=== PATIENT | male | born 1975 | race Caucasian/White ===

== ENCOUNTER 2021-12-28 04:28 | Emergency (ER) | payer OTHER ==
[~2021-12-28] VITALS: Ht 177.8 cm; Wt 133.8 kg
[2021-12-28] MEDS ORDERED: NS IV 1000 ML 1,000 ML IV STA (04:47)
[2021-12-28] MEDS ORDERED: ONDANSETRON 4 MG/2 ML (SDV) Z0FRAN IVP STA (04:47)
[2021-12-28] MEDS ORDERED: KETOROLAC 30 MG/ML VIAL IVP STA (04:47)
--- NOTE | 2021-12-28 04:53 | ED Abdominal Pain ---
General Chief Complaint: Abdominal/GI Problems Stated Complaint: KIDNEY STONES Source of Information: Patient History of Present Illness Date Seen by Provider: Dec 28, 2021 Time Seen by Provider: 04:36 Initial Comments 46-year-old male presenting with 3 hours of left flank pain. He states he has also had nausea and vomiting with this. He has had prior kidney stones and states this feels similar. It has been several years since he had a kidney stone. He also had eaten a lot of food [employer] earlier, so he was uncomfortable in his abdomen due to that as well. He denies any other medical problems and does not take any routine medications. He denies allergies to medications. He states he does follow-up with a urologist routinely in the longer since a had not had a kidney stone for several years. He did not try to take any medicine at home for the pain Timing/Duration: 1-3 Hours Severity/Quality: Severe, Aching, Stabbing Location: Flank (Left flank) Radiation: Flank (Left flank) Activities at Onset: Sleeping Associated Symptoms: Back Pain (Left flank pain); No Chest Pain; Diaphoresis; No Fever/Chills, No Fatigue, No Headache, No Heartburn; Nausea/Vomiting; No Rash, No Shortness of Air, No Swelling/Mass in Abdomen, No Syncope, No Weakness Allergies and Home Medications Allergies Coded Allergies: No Known Drug Allergies (Unverified , 12/28/21) Patient Home Medication List Home Medication List Reviewed: Yes Ondansetron (Ondansetron Odt) 4 Mg Tab.rapdis, 4 MG PO Q6H PRN for NAUS EA/VOMITING Prescribed by: MATTHEW CURRYRT on 12/28/21611 Oxycodone HCl/Acetaminophen (Oxycodone-Acetaminophen 5-325) 5 Mg-325 Mg Tablet, 1 EACH PO Q4H PRN for PAIN-SEVERE (8-10) Prescribed by: MATTHEW CURRYRT on 12/28/21612 Tamsulosin HCl (Flomax) 0.4 Mg Cap, 0.4 MG PO DAILY Prescribed by: MATTHEW SCHULER on 12/28/21611 Review of Systems Review of Systems Constitutional: see HPI; No chills, No fever EENTM: No Symptoms Reported Respiratory: No Symptoms Reported Cardiovascular: No Symptoms Reported Gastrointestinal: See HPI Genitourinary: Denies Burning; Flank Pain (Left) Musculoskeletal: see HPI Skin: no symptoms reported Psychiatric/Neurological: No Symptoms Reported Endocrine: No Symptoms Reported Past Oaagtqk-Mzvleo-Sageci Hx Past Medical History Surgery/Hospitalization HX: Kidney stones Physical Exam Vital Signs Vital Signs - First Documented 12/28/21 04:36 Temp 36.1 Pulse 73 Resp 20 B/P (MAP) 145/87 (106) Pulse Ox 98 O2 Delivery Room Air Capillary Refill : Height/Weight/BMI Height: '" Weight: lbs. oz. kg; BMI Method: General Appearance: mild distress, obese HEENT: PERRL/EOMI, pharynx normal Neck: non-tender, full range of motion, supple, normal inspection Respiratory: chest non-tender, lungs clear, normal breath sounds, no respiratory distress, no accessory muscle use Cardiovascular: normal peripheral pulses, regular rate, rhythm Gastrointestinal: normal bowel sounds, soft, no pulsatile mass; No distended, No guarding, No rebound; tenderness (Mild diffuse tenderness to palpation) Rectal: deferred Extremities: normal range of motion, non-tender, normal capillary refill Neurologic/Psychiatric: alert, oriented x 3 Skin: normal color, warm/dry Images 1 - Left flank pain Progress/Results/Core Measures Results/Orders Lab Results Laboratory Tests Test 12/28/21 04:36 12/28/21 04:40 Range/Units Urine Color DARK YELLOW Urine Clarity SL CLOUDY Urine pH 5.5 5-9 Urine Specific [place] >=1.030 1.016-1.022 Urine Protein NEGATIVE NEGATIVE Urine Glucose (UA) NEGATIVE NEGATIVE Urine Ketones NEGATIVE NEGATIVE Urine Nitrite NEGATIVE NEGATIVE Urine Bilirubin NEGATIVE NEGATIVE Urine Urobilinogen 0.2 < = 1.0 MG/DL Urine Leukocyte Esterase NEGATIVE NEGATIVE Urine RBC (Auto) 3+ H NEGATIVE Urine RBC 25-50 H /HPF Urine WBC RARE /HPF Urine Squamous Epithelial Cells 2-5 /HPF Urine Crystals NONE /LPF Urine Bacteria NEGATIVE /HPF Urine Casts NONE /LPF Urine Mucus MODERATE H /LPF Urine Culture Indicated NO Urine Opiates Screen NEGATIVE NEGATIVE Urine Oxycodone Screen NEGATIVE NEGATIVE Urine Methadone Screen NEGATIVE NEGATIVE Urine Propoxyphene Screen NEGATIVE NEGATIVE Urine Barbiturates Screen NEGATIVE NEGATIVE Ur Tricyclic Antidepressants Screen NEGATIVE NEGATIVE Urine Phencyclidine Screen NEGATIVE NEGATIVE Urine Amphetamines Screen NEGATIVE NEGATIVE Urine Methamphetamines Screen NEGATIVE NEGATIVE Urine Benzodiazepines Screen NEGATIVE NEGATIVE Urine Cocaine Screen NEGATIVE NEGATIVE Urine Cannabinoids Screen NEGATIVE NEGATIVE White Blood Count 7.5 4.3-11.0 10^3/uL Red Blood Count 4.55 4.30-5.52 10^6/uL Hemoglobin 14.0 13.3-17.7 g/dL Hematocrit 41 40-54 % Mean Corpuscular Volume 90 80-99 fL Mean Corpuscular Hemoglobin 31 25-34 pg Mean Corpuscular Hemoglobin Concent 34 32-36 g/dL Red Cell Distribution Width 12.3 10.0-14.5 % Platelet Count 197 130-400 10^3/uL Mean Platelet Volume 9.6 9.0-12.2 fL Immature Granulocyte % (Auto) 0 % Neutrophils (%) (Auto) 45 42-75 % Lymphocytes (%) (Auto) 37 12-44 % Monocytes (%) (Auto) 9 0-12 % Eosinophils (%) (Auto) 8 0-10 % Basophils (%) (Auto) 1 0-10 % Neutrophils # (Auto) 3.4 1.8-7.8 10^3/uL Lymphocytes # (Auto) 2.8 1.0-4.0 10^3/uL Monocytes # (Auto) 0.7 0.0-1.0 10^3/uL Eosinophils # (Auto) 0.6 H 0.0-0.3 10^3/uL Basophils # (Auto) 0.0 0.0-0.1 10^3/uL Immature Granulocyte # (Auto) 0.0 0.0-0.1 10^3/uL Sodium Level 140 135-145 MMOL/L Potassium Level 3.8 3.6-5.0 MMOL/L Chloride Level 106 98-107 MMOL/L Carbon Dioxide Level 26 21-32 MMOL/L Anion Gap 8 5-14 MMOL/L Blood Urea Nitrogen 14 7-18 MG/DL Creatinine 1.01 0.60-1.30 MG/DL Estimat Glomerular Filtration Rate 94 BUN/Creatinine Ratio 14 Glucose Level 131 H 70-105 MG/DL Calcium Level 9.0 8.5-10.1 MG/DL Corrected Calcium 8.7 8.5-10.1 MG/DL Total Bilirubin 0.2 0.1-1.0 MG/DL Aspartate Amino Transf (AST/SGOT) 30 5-34 U/L Alanine Aminotransferase (ALT/SGPT) 36 0-55 U/L Alkaline Phosphatase 61 40-136 U/L Total Protein 7.0 6.4-8.2 GM/DL Albumin 4.4 3.2-4.5 GM/DL Lipase 26 8-78 U/L My Orders Orders - MATTHEW SCHULER MD Comprehensive Metabolic Panel (12/28/21 04:46) Lipase (12/28/21 04:46) Ua Culture If Indicated (12/28/21 04:46) Ed Iv/Invasive Line Start (12/28/21 04:46) Cbc With Automated Diff (12/28/21 04:46) Ct Abdomen/Pelvis Wo (12/28/21 04:46) Drug Screen Stat (Urine) (12/28/21 04:46) Ns Iv 1000 Ml (Sodium Chloride 0.9%) (12/28/21 04:47) Ondansetron Injection (Zofran Injectio (12/28/21 04:47) Ketorolac Injection (Toradol Injection) (12/28/21 04:47) Tamsulosin Capsule (Flomax Capsule) (12/28/21 06:06) Oxycodone/Apap 5/325mg Tablet (Percocet (12/28/21 06:06) Strain Urine (12/28/21 06:06) Vital Signs/I&O 12/28/21 12/28/21 04:36 06:15 Temp 36.1 Pulse 73 76 Resp 20 17 B/P (MAP) 145/87 (106) 141/80 Pulse Ox 98 99 O2 Delivery Room Air Room Air Progress Progress Note #1: Progress Note Check labs and urinalysis as well as CT scan of the abdomen and pelvis without contrast. For pain give 30 mg IV Toradol, for nausea Zofran 4 mg IV, normal saline 1 L IV fluid for hydration. Differential diagnosis includes kidney stone, renal colic, pyelonephritis, UTI, diverticulitis, colitis Progress Note #2: Progress Note Labs appear stable without acute significant abnormality on CBC or chemistry. His urinalysis was concentrated with specific gravity greater than 1.030. There was red blood cells in his urine. CT scan of abdomen and pelvis without contrast showed a 4 mm kidney stone in the proximal ureter on the left side. There were at least 3 other stones bilaterally within the kidneys themselves. He also appeared to have some fatty infiltration of the liver. Patient's symptoms improved with treatment here in the ED. Counseled on management of his symptoms and follow-up and return precautions. Will add Flomax to try and help relax the ureter so the stone may pass easier. Prescribed opiate for severe pain and counseled that he could use [id number] NSAIDs to help with just inflammation and pain. A few Zofran and dissolving nausea tablets if needed for helping to keep his stomach settled. Advised to strain his urine to see when the stone passes and to check with urology if the stone is not passed within 5 to 7 days or if his pain gets worse. Advised to return or seek medical care immediately if he has fever of 101 Fahrenheit, uncontrolled pain, worsening pain despite the medicine. Diagnostic Imaging Diagonstic Imaging: CT Plain Films/CT/US/NM/MRI: abdomen, pelvis Comments NAME: AL LUTZ [facility] REC#: [id number] PT STATUS: REG ER : 1975 PHYSICIAN: MATTHEW SCHULER MD ADMIT DATE: 12/28/21/ER FS Draft Date of Exam:12/28/21 CT ABDOMEN/PELVIS WO INDICATION: Left flank pain, history of kidney stones. TECHNIQUE: Multiple contiguous axial images were obtained through the abdomen and pelvis without the use of intravenous contrast. Auto Exposure Controls were utilized during the CT exam to meet ALARA standards for radiation dose reduction. There is no prior study for comparison. FINDINGS: The visualized portions of the lung bases are clear. There were no pleural fluid collections. There is no free intraperitoneal air. The liver shows diffuse low-density change compatible with fatty infiltration. Gallbladder appears normal. The spleen, pancreas, and adrenals appear normal. The right kidney shows a couple of small nonocclusive stones in the calyceal region. There is no right hydronephrosis or hydroureter. The left kidney shows a couple tiny intrarenal calculi which appear to be in the caliceal region. There is mild left hydronephrosis, secondary to a stone in the proximal ureter just beyond the UPJ, measuring about 4 mm in diameter. There are no additional stones beyond this point. There is no retroperitoneal mass or adenopathy. There is no ascites or abnormal fluid collection. Visualized bowel loops including the appendix appear normal. There is no pelvic mass or lymphadenopathy. IMPRESSION: There are bilateral intrarenal calculi. There is mild left hydronephrosis secondary to a 4 mm stone in the left proximal ureter just beyond the UPJ. There is diffuse fatty infiltration of the liver. Dictated on workstation # [id number] Dict: 12/28/21 0549 Trans: 12/28/21 0556 [id number] Interpreted by: AGUSTIN SARABIA MD Electronically signed by: Reviewed: Reviewed by Me Departure Impression Primary Impression: Renal colic on left side Additional Impressions: Acute left flank pain Ureteral calculus, left Kidney stones Disposition: HOME, SELF-CARE Condition: Improved Departure-Patient Inst. Decision time for Depature: 06:07 Referrals: CONSTANTINO COLLADO MD Patient Instructions: Flank Pain ED, Opioids for Short-Term Treatment of Pain ED, Kidney Stone, Adult ED, How to Strain Your Urine, Kidney Stone Diet Add. Discharge Instructions: Strain your urine to see when the kidney stone passes. You have a 4 mm stone that is in the ureter close to the left kidney. There are at least 3 other small stones within your kidneys, two on the right side and one on the left Make sure you are drinking plenty of water and staying well-hydrated. Avoid carbonated and caffeinated drinks as these can help contribute to more sounds forming. Use the Flomax to help your ureter relax and make it easier for the stone to pass. Take the narcotic pain pill to help with severe pain. [id number] you can also try taking ibuprofen or naproxen to try and help with pain and inflammation. If needed use the dissolving nausea tablet to help keep your stomach settled Especially if your pain is not improving within the next 5 to 7 days or you are not seen the stone pass you would need to follow-up with urology. They may need to perform a procedure to help the stone pass or break it up. All discharge instructions reviewed with patient and/or family. Voiced understanding. Scripts Oxycodone HCl/Acetaminophen (Oxycodone-Acetaminophen 5-325) 5 Mg-325 Mg Tablet 1 EACH PO Q4H PRN for PAIN-SEVERE (8-10) MDD 6 for 5 Days, #30 TAB 0 Refills Prov: MATTHEW SCHULER MD 12/28/21 Tamsulosin HCl (Flomax) 0.4 Mg Cap 0.4 MG PO DAILY for renal colic for 7 Days, #7 CAP 0 Refills Prov: MATTHEW SCHULER MD 12/28/21 Ondansetron (Ondansetron Odt) 4 Mg Tab.rapdis 4 MG PO Q6H PRN for NAUSEA/VOMITING for 4 Days, #16 TAB 0 Refills Prov: MATTHEW SCHULER MD 12/28/21 MATTHEW SCHULER MD Dec 28, 2021 04:53
[2021-12-28 04:59] LABS: BASOPHILS % (AUTO) 1 % (0-10); EOSINOPHILS # (AUTO) 0.6 10^3/uL (0.0-0.3); EOSINOPHILS % (AUTO) 8 % (0-10); HEMATOCRIT 41 % (40-54); LYMPHOCYTES # (AUTO) 2.8 10^3/uL (1.0-4.0); LYMPHOCYTES % (AUTO) 37 % (12-44); MEAN CORPUSCULAR HEMOGLOBIN 31 pg (25-34); MEAN CORPUSCULAR HGB CONC 34 g/dL (32-36); MEAN CORPUSCULAR VOLUME 90 fL (80-99); MEAN PLATELET VOLUME 9.6 fL (9.0-12.2); MONOCYTES # (AUTO) 0.7 10^3/uL (0.0-1.0); MONOCYTES % (AUTO) 9 % (0-12); NEUTROPHILS # (AUTO) 3.4 10^3/uL (1.8-7.8); NEUTROPHILS % (AUTO) 45 % (42-75); PLATELET COUNT 197 10^3/uL (130-400); WHITE BLOOD COUNT 7.5 10^3/uL (4.3-11.0)
[2021-12-28 05:01] LABS: BILIRUBIN,URINE NEGATIVE (NEGATIVE); CLARITY,URINE SL CLOUDY; GLUCOSE, URINE (UA) NEGATIVE (NEGATIVE); KETONES,URINE NEGATIVE (NEGATIVE); LEUKOCYTE ESTERASE ,URINE NEGATIVE (NEGATIVE); NITRITE,URINE NEGATIVE (NEGATIVE); PH,URINE 5.5 (5-9); PROTEIN,URINE NEGATIVE (NEGATIVE)
[2021-12-28 05:12] LABS: BACTERIA,URINE NEGATIVE /HPF; COLOR,URINE DARK YELLOW; RBC,URINE 25-50 /HPF; WBC,URINE RARE /HPF
[2021-12-28 05:13] LABS: AMPHETAMINE SCREEN, URINE NEGATIVE (NEGATIVE); BARBITURATE SCREEN URINE NEGATIVE (NEGATIVE); BENZODIAZEPINES SCREEN URINE NEGATIVE (NEGATIVE); CANNABINOID SCREEN, URINE NEGATIVE (NEGATIVE); COCAINE SCREEN URINE NEGATIVE (NEGATIVE); METHADONE STAT NEGATIVE (NEGATIVE); OPIATE SCREEN URINE NEGATIVE (NEGATIVE); OXYCODONE STAT NEGATIVE (NEGATIVE); PROPOXYPHENE STAT NEGATIVE (NEGATIVE); TRICYCLIC ANTIDEPRESSANTS SCRE NEGATIVE (NEGATIVE)
[2021-12-28 05:15] LABS: POTASSIUM 3.8 MMOL/L (3.6-5.0)
[2021-12-28 05:20] LABS: BILIRUBIN,TOTAL 0.2 MG/DL (0.1-1.0); CREATININE SERUM 1.01 MG/DL (0.60-1.30)
[2021-12-28 05:21] LABS: ALBUMIN 4.4 GM/DL (3.2-4.5)
--- NOTE | 2021-12-28 05:56 | Diagnostic Imaging Report ---
INDICATION: Left flank pain, history of kidney stones. TECHNIQUE: Multiple contiguous axial images were obtained through the abdomen and pelvis without the use of intravenous contrast. Auto Exposure Controls were utilized during the CT exam to meet ALARA standards for radiation dose reduction. There is no prior study for comparison. FINDINGS: The visualized portions of the lung bases are clear. There were no pleural fluid collections. There is no free intraperitoneal air. The liver shows diffuse low-density change compatible with fatty infiltration. Gallbladder appears normal. The spleen, pancreas, and adrenals appear normal. The right kidney shows a couple of small nonocclusive stones in the calyceal region. There is no right hydronephrosis or hydroureter. The left kidney shows a couple tiny intrarenal calculi which appear to be in the caliceal region. There is mild left hydronephrosis, secondary to a stone in the proximal ureter just beyond the UPJ, measuring about 4 mm in diameter. There are no additional stones beyond this point. There is no retroperitoneal mass or adenopathy. There is no ascites or abnormal fluid collection. Visualized bowel loops including the appendix appear normal. There is no pelvic mass or lymphadenopathy. IMPRESSION: There are bilateral intrarenal calculi. There is mild left hydronephrosis secondary to a 4 mm stone in the left proximal ureter just beyond the UPJ. There is diffuse fatty infiltration of the liver. Dictated by: Dictated on workstation # [id number]
[2021-12-28] MEDS ORDERED: oxyCODONE/APAP 5/325MG (PERCOCET 5) TABLET PO STA (06:06)
[2021-12-28] MEDS ORDERED: TAMSULOSIN 0.4 MG (FLOMAX) CAP PO STA (06:06)
[2021-12-28] MEDS ORDERED: OXYC1TAB11 PO (06:12)
[2021-12-28] MEDS ORDERED: TMSL.4C PO (06:12)
[2021-12-28] MEDS ORDERED: ONDA4TAB11 PO (06:12)
[2021-12-28 06:15] VITALS: BP 141/80
== END 2021-12-28 06:15 | disposition home or self-care (01) ==
LOC: ER FS 04:32
DX: N13.2 Hydronephrosis with renal and ureteral calculous obstruction (principal); E66.9 Obesity, unspecified
CPT/HCPCS: 36415; 74176; 80053; 80306; 81000; 83690; 85025